=== PATIENT | male | born 1985 | race Hispanic/Latino ===

== ENCOUNTER 2017-10-07 16:08 | Emergency (ER) | payer BC ==
[2017-10-07] MEDS ORDERED: FAMOTIDINE 20 MG/2 ML VIAL IV ONE (17:05)
[2017-10-07] MEDS ORDERED: DIPHENHYDRAMINE 50 MG/ML VIAL ONE (17:05)
[2017-10-07] MEDS ORDERED: METHYLPREDNISOLONE 125 MG INJ ONE (17:05)
--- NOTE | 2017-10-07 17:26 | ER ---
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 Denies SOB. Transition of care: patient was not received from another setting of care. Onset: The symptoms/episode began/occurred acutely, suddenly, 1 hour(s) ago. Anaphylaxis evaluation, no signs or symptoms of anaphylaxis were noted. Onset of symptoms was October 07, 2017. Risk Assessment: Do you want to hurt yourself or someone else? Patient reports no desire to harm self or others. 16:26 Method Of Arrival: Ambulatory hb 16:26 Acuity: BRANDI 3 hb 17:46 Initial Sepsis Screen: Does the patient meet any 2 criteria? No. Patient's initial ch sepsis screen is negative. Does the patient have a suspected source of infection? No. Patient's initial sepsis screen is negative. Care prior to arrival: None. Triage Assessment: 17:46 General: Appears in no apparent distress. comfortable, Behavior is calm, cooperative, ch appropriate for age. Historical: - Allergies: 16:30 No Known Allergies; hb - Home Meds: 16:30 Effexor XR 75 mg Oral cp24 1 cap once daily [Active]; hb - PMHx: 16:30 ADD/ADHD; hb - PSHx: 16:30 None; hb - Immunization history:: Adult Immunizations up to date. - Social history:: Smoking status: Patient/guardian denies using tobacco. - Ebola Screening: : No symptoms or risks identified at this time. Screenin:00 Abuse screen: Denies threats or abuse. Denies injuries from another. Nutritional ch screening: No deficits noted. Tuberculosis screening: No symptoms or risk factors identified. Fall Risk None identified. Assessment: 17:00 General: Appears in no apparent distress. comfortable, Behavior is calm, cooperative, ch appropriate for age. Pain: Denies pain. Neuro: No deficits noted. Respiratory: Airway is patent Trachea midline Respiratory effort is even, unlabored, Breath sounds are clear bilaterally. Derm: Skin is pink, warm \T\ dry. Rash noted that is red, on face, chest and neck. Musculoskeletal: No signs and/or symptoms reported regarding the musculoskeletal system. 17:19 Reassessment: Patient appears in no apparent distress at this time. Patient and/or ch family updated on plan of care and expected duration. Pain level reassessed. Patient is alert, oriented x 3, equal unlabored respirations, skin warm/dry/pink. Patient states feeling better. 17:45 Reassessment: Patient appears in no apparent distress at this time. Patient and/or ch family updated on plan of care and expected duration. Pain level reassessed. Patient is alert, oriented x 3, equal unlabored respirations, skin warm/dry/pink. Patient denies pain at this time. Patient states feeling better. Patient states symptoms have improved. Vital Signs: 16:29 BP 146 / 96; Pulse 88; Resp 16; Temp 98; Pulse Ox 100% on R/A; Pain 0/10; hb 17:45 BP 119 / 71; Pulse 64; Resp 15; Temp 98.3; Pulse Ox 99% on R/A; Pain 0/10; ch ED Course: 16:12 Patient arrived in ED. mr 16:12 None, None is Private Physician. mr 16:28 Conchita Salguero, ALEXANDR is Primary Nurse. ch 16:29 Howard Boyd [facility]. pm1 16:29 Erasmo Davila MD is Attending Physician. pm1 16:29 Triage completed. hb 16:30 Arm band placed on right wrist. hb 17:00 No apparent distress. Resting quietly. ch 17:00 Patient has correct armband on for positive identification. Bed in low position. Call light in reach. Side rails up X 1. Adult w/ patient. Pulse ox on. NIBP on. 17:00 No provider procedures requiring assistance completed. Inserted saline lock: 18 gauge ch in left antecubital area, using aseptic technique. 17:45 Warm blanket given. ch 17:45 IV discontinued, intact, bleeding controlled, No redness/swelling at site. Pressure ch dressing applied. Administered Medications: 17:05 Drug: SOLU-Medrol 125 mg Route: IVP; Site: left antecubital; ch 17:53 Follow up: Response: No adverse reaction; Marked relief of symptoms ch 17:18 Drug: Pepcid 20 mg Route: IVP; Site: left antecubital; 17:53 Follow up: Response: No adverse reaction; Marked relief of symptoms 17:19 Drug: Benadryl 25 mg Route: IVP; Site: left antecubital; 17:53 Follow up: Response: No adverse reaction; Marked relief of symptoms Outcome: 17:25 Discharge ordered by MD. pm1 17:45 Discharged to home ambulatory, with family. 17:45 Condition: improved 17:45 Discharge instructions given to patient, family, Instructed on discharge instructions, follow up and referral plans. medication usage, Demonstrated understanding of instructions, follow-up care, medications. 17:52 Prescriptions given X 3. 17:52 Patient left the ED. Signatures: Conchita Salguero, ALEXANDR RN Alina Beavers Patrick, ISHAN CHILD PSYCHIATRIST pm1 Latosha Hodges RN RN hb Corrections: (The following items were deleted from the chart) 16:49 16:26 Acuity: BRANDI 4 hb hb 17:20 17:00 Patient did not have IV access during this emergency room visit. [facility]
--- NOTE | 2017-10-07 17:26 | EDPHYS ---
Physician Documentation [facility] Name: James Allred Age: 32 yrs Sex: Male : 1985 Arrival Date: 10/07/2017 Time: 16:12 Bed 2 Private MD: None, None ED Physician Erasmo Davila HPI: 10/07 16:47 This 32 yrs old Male presents to ER via Ambulatory with complaints of Allergic pm1 Reaction. 16:47 The patient presents with itching, rash. Onset: The symptoms/episode began/occurred pm1 today. Associated signs and symptoms: Pertinent positives: hives, rash, Pertinent negatives: abdominal pain, chest pain, fever, nausea, shortness of breath, vomiting. Possible causes: Possible ant bite to left rib area. At home the patient or guardian has treated the symptoms with nothing. Severity of symptoms: in the emergency department the symptoms are worse. The patient has not experienced similar symptoms in the past. Initial onset with possible ant bite to left lower rib. 1 hour later patient reporting redness to upper chest and pressure sensation below both ears bilaterally. Historical: - Allergies: 16:30 No Known Allergies; hb - Home Meds: 16:30 Effexor XR 75 mg Oral cp24 1 cap once daily [Active]; hb - PMHx: 16:30 ADD/ADHD; hb - PSHx: 16:30 None; hb - Immunization history:: Adult Immunizations up to date. - Social history:: Smoking status: Patient/guardian denies using tobacco. - Ebola Screening: : No symptoms or risks identified at this time. ROS: 16:47 Constitutional: Negative for fever, chills, and weight loss, Eyes: Negative for injury, pm1 pain, redness, and discharge, ENT: Negative for injury, pain, and discharge, Neck: Negative for injury, pain, and swelling, Cardiovascular: Negative for chest pain, palpitations, and edema, Respiratory: Negative for shortness of breath, cough, wheezing, and pleuritic chest pain, Abdomen/GI: Negative for abdominal pain, nausea, vomiting, diarrhea, and constipation, Back: Negative for injury and pain, : Negative for injury, bleeding, discharge, and swelling, MS/Extremity: Negative for injury and deformity. 16:47 Skin: Positive for rash. Exam: 16:47 Constitutional: This is a well developed, well nourished patient who is awake, alert, pm1 and in no acute distress. Head/Face: Normocephalic, atraumatic. Eyes: Pupils equal round and reactive to light, extra-ocular motions intact. Lids and lashes normal. Conjunctiva and sclera are non-icteric and not injected. Cornea within normal limits. Periorbital areas with no swelling, redness, or edema. ENT: Nares patent. No nasal discharge, no septal abnormalities noted. Tympanic membranes are normal and external auditory canals are clear. Oropharynx with no redness, swelling, or masses, exudates, or evidence of obstruction, uvula midline. Mucous membranes moist. Neck: Trachea midline, no thyromegaly or masses palpated, and no cervical lymphadenopathy. Supple, full range of motion without nuchal rigidity, or vertebral point tenderness. No Meningismus. Chest/axilla: Normal chest wall appearance and motion. Nontender with no deformity. No lesions are appreciated. Cardiovascular: Regular rate and rhythm with a normal S1 and S2. No gallops, murmurs, or rubs. Normal PMI, no JVD. No pulse deficits. Respiratory: Lungs have equal breath sounds bilaterally, clear to auscultation and percussion. No rales, rhonchi or wheezes noted. No increased work of breathing, no retractions or nasal flaring. Abdomen/GI: Soft, non-tender, with normal bowel sounds. No distension or tympany. No guarding or rebound. No evidence of tenderness throughout. Back: No spinal tenderness. No costovertebral tenderness. Full range of motion. 16:47 MS/ Extremity: Pulses equal, no cyanosis. Neurovascular intact. Full, normal range of motion. 16:47 Skin: consistent with urticaria. Vital Signs: 16:29 BP 146 / 96; Pulse 88; Resp 16; Temp 98; Pulse Ox 100% on R/A; Pain 0/10; hb 17:45 BP 119 / 71; Pulse 64; Resp 15; Temp 98.3; Pulse Ox 99% on R/A; Pain 0/10; ch MDM: 16:29 Patient medically screened. pm1 16:55 Data reviewed: vital signs. Data interpreted: Pulse oximetry: on room air is 100 %. pm1 Interpretation: normal. 17:25 Counseling: I had a detailed discussion with the patient and/or guardian regarding: the pm1 historical points, exam findings, and any diagnostic results supporting the discharge/admit diagnosis, the need for outpatient follow up, to return to the emergency department if symptoms worsen or persist or if there are any questions or concerns that arise at home. 17:25 ED course: Near complete resolution of urticarial rash. pm1 10/07 16:38 Order name: IV Saline Lock; Complete Time: 17:19 pm1 Administered Medications: 17:05 Drug: SOLU-Medrol 125 mg Route: IVP; Site: left antecubital; 17:53 Follow up: Response: No adverse reaction; Marked relief of symptoms 17:18 Drug: Pepcid 20 mg Route: IVP; Site: left antecubital; 17:53 Follow up: Response: No adverse reaction; Marked relief of symptoms 17:19 Drug: Benadryl 25 mg Route: IVP; Site: left antecubital; 17:53 Follow up: Response: No adverse reaction; Marked relief of symptoms Disposition: 10/08 14:10 Co-signature as Attending Physician, Erasmo Davila MD I agree with the assessment and channing plan of care. Disposition: 10/07/17 17:25 Discharged to Home. Impression: Urticaria. - Condition is Stable. - Discharge Instructions: Insect Bite, Hives. - Prescriptions for Benadryl 25 mg Oral Capsule - take 1 capsule by ORAL route every 6 hours As needed; 30 tablet. Pepcid 20 mg Oral Tablet - take 1 tablet by ORAL route every 12 hours for 10 days; 20 tablet. Medrol (Lobito) 4 mg Oral Tablets, Dose Pack - take 1 tablet by ORAL route as directed - follow package instructions; 1 packet. - Medication Reconciliation Form, Thank You Letter, Antibiotic Education form. - Follow up: Emergency Department; When: As needed; Reason: Worsening of condition. Follow up: Private Physician; When: As needed; Reason: Recheck today's complaints, Continuance of care, Re-evaluation by your physician. - Problem is new. - Symptoms have improved. Signatures: Conchita Salguero RN RN ch Anderson, Corey, MD MD cha Marinas, Patrick, DEPENDENCY COUNSELOR DEPENDENCY COUNSELOR pm1 Latosha oHdges RN RN Corrections: (The following items were deleted from the chart) 10/07 17:52 17:25 10/07/2017 17:25 Discharged to Home. Impression: Urticaria. Condition is Stable. ch Forms are Medication Reconciliation Form, Thank You Letter, Antibiotic Education, Prescription Opioid Use. Follow up: Emergency Department; When: As needed; Reason: Worsening of condition. Follow up: Private Physician; When: As needed; Reason: Recheck today's complaints, Continuance of care, Re-evaluation by your physician. Problem is new. Symptoms have improved. pm1
== END 2017-10-07 17:52 | disposition home or self-care (01) ==
LOC: ER 16:08
DX: L50.9 Urticaria, unspecified (principal)
CPT/HCPCS: 96374; 96375; 99284; J2930